=== PATIENT | female | born 1960 | race Caucasian/White ===

== ENCOUNTER 2020-08-04 15:51 | Emergency (ER) | payer MEDICARE, MEDICAID ==
[~2020-08-04] VITALS: Ht 165.1 cm; Wt 82.0 kg
--- NOTE | 2020-08-04 16:11 | NUR ---
Pt arrives via [facility] from home at [place]. Requested to be brought to [facility] stating last time she needed dilaudid and ativan. Pt reporting lower abdominal pain, nauseau, and vomitting since about 0200 lastnight. Pt reporting abd pain 10/10. 100% RA, breathing tachypnic, pt appears anxious. Reports medical hx of COPD, gastric bypass, chronic pain. Hooked up to monitor, EKG done. Placed chucks pad under pt and changed out of clothes into gown as she reprots she "pees a little" everytime she throws up. Pt thowing up very small amount of liquid vomit on arrival to room. Provided emesis bag.
[2020-08-04] MEDS ORDERED: SODIUM CHLORIDE FLUSH 10ML SYR IVF ONE (16:30)
[2020-08-04] MEDS ORDERED: ONDANSETRON 2MG/ML, 2ML IVPush ONE (16:30)
[2020-08-04] MEDS ORDERED: SODIUM CHLORIDE 0.9% 1,000ML IVBOLUS ONE (16:30)
[2020-08-04] MEDS ORDERED: MORPHINE SULFATE 4 MG/ML, 1ML ONE ×2 (16:32→18:27)
[2020-08-04] MEDS ORDERED: ONDANSETRON 2MG/ML, 2ML ONE (16:32)
--- NOTE | 2020-08-04 17:12 | NUR ---
Lab at bedside.
[2020-08-04 17:28] LABS: BASOPHILS % (AUTO) 1 % (0-1); EOSINOPHILS % (AUTO) 0 % (1-7); LYMPHOCYTES % (AUTO) 14 % (22-44); MEAN CORPUSCULAR HEMOGLOBIN 28.6 pg (27.0-34.8); MEAN CORPUSCULAR HGB CONC 33.1 g/dL (32.4-35.8); MEAN PLATELET VOLUME 8.4 fL (7.4-10.4); MONOCYTES % (AUTO) 3 % (2-9); NEUTROPHILS % (AUTO) 82 % (42-75); PLATELET COUNT 161 x10^3/uL (130-400); RED CELL DISTRIBUTION WIDTH 14.5 % (9.6-15.2)
[2020-08-04 17:29] LABS: MD NO
[2020-08-04] MEDS: MORPHINE SULFATE 4 MG/ML, 1ML IVPush PRN ×2 (17:30→18:29)
--- NOTE | 2020-08-04 17:35 | NUR ---
EJ IV started by HEIDI Ortega. NS infusing, medicated per eMAR.
[2020-08-04 17:38] LABS: ANION GAP 10 mmol/L (5-15); CALCIUM 8.9 mg/dL (8.5-10.1); CHLORIDE 110 mmol/L (98-107)
[2020-08-04 17:41] LABS: ALANINE AMINOTRANSFERASE 18 U/L (12-78); ALKALINE PHOSPHATASE 155 U/L (45-117); BILIRUBIN,TOTAL 0.5 mg/dL (0.2-1.0); CREATININE 0.94 mg/dL (0.55-1.02); TOTAL PROTEIN 8.1 g/dL (6.4-8.2)
--- NOTE | 2020-08-04 17:43 | NUR ---
Pt sleeping. Breathing equal, non-labored.
--- NOTE | 2020-08-04 17:50 | NUR ---
Pt reports pain has gone down from 1010 to 4/10.
--- NOTE | 2020-08-04 17:52 | NUR ---
Pt at CT.
[2020-08-04] MEDS ORDERED: OMNIPAQUE 350 MG/ML, 100ML BOTTLE ONE (17:58)
--- NOTE | 2020-08-04 18:06 | NUR ---
Assisted pt to bedside commode. UA collected and tubed to lab.
--- NOTE | 2020-08-04 18:11 | NUR ---
Provided pt socks per pt request.
[2020-08-04 18:23] LABS: MICROSCOPIC NOT IND
--- NOTE | 2020-08-04 19:15 | NUR ---
Dr. Mendiola at bedside.
[2020-08-04 20:04] VITALS: BP 91/61
--- NOTE | 2020-08-04 20:09 | NUR ---
IV removed, catheter intact, hemostasis achieved, dressing applied.
== END 2020-08-04 20:20 | disposition home or self-care (01) ==
LOC: ED 19:59
DX: K76.6 Portal hypertension (principal); K40.90 Unilateral inguinal hernia, without obstruction or gangrene, not specified as recurrent; R16.1 Splenomegaly, not elsewhere classified; R10.30 Lower abdominal pain, unspecified; R10.9 Unspecified abdominal pain; R94.31 Abnormal electrocardiogram [ECG] [EKG]; F41.9 Anxiety disorder, unspecified; R11.2 Nausea with vomiting, unspecified; I10 Essential (primary) hypertension; G89.29 Other chronic pain
CPT/HCPCS: 36415; 74177; 80053; 81003; 83605; 83690; 85025; 87040; 93005; 96361; 96374; 96375; 96376; 99285; J2270; J2405; J7030; Q9967

== ENCOUNTER 2020-08-06 11:46 | Emergency (ER) | payer MEDICARE, MEDICAID ==
[~2020-08-06] VITALS: Ht 165.1 cm; Wt 82.0 kg
--- NOTE | 2020-08-06 11:59 | NUR ---
PT BIB EMS FROM [facility] FOR NV AND ABD PAIN X 3 DAYS. A PAIN WHICH SHE DESCRIBES A "BURNING". PT WAS SEEN IN ER 2 DAYS AGO FOR SAME AND DCd "THEY DIDNT TELL ME ANYTHING". PT RECIEVED 25MG [facility]. PT RESTING IN [facility]. CONNECTED TO MONITORING EQUIPMENT.
[2020-08-06] MEDS ORDERED: MORPHINE SULFATE 4 MG/ML, 1ML ONE ×2 (12:06→12:28)
[2020-08-06] MEDS ORDERED: ONDANSETRON 2MG/ML, 2ML ONE (12:06)
[2020-08-06] MEDS: MORPHINE SULFATE 4 MG/ML, 1ML IVPush PRN ×2 (12:14→12:33)
--- NOTE | 2020-08-06 12:18 | NUR ---
PT MEDICATED PER JUL. REPORTS PAIN IMPROVEMENT
[2020-08-06 12:29] LABS: MICROSCOPIC NOT IND
[2020-08-06] MEDS ORDERED: SODIUM CHLORIDE 0.9% 1,000 ML IV ONE (12:30)
[2020-08-06] MEDS ORDERED: ONDANSETRON 2MG/ML, 2ML IVPush ONE (12:30)
[2020-08-06] MEDS ORDERED: SODIUM CHLORIDE 0.9% 1,000ML IVBOLUS ONE (12:30)
[2020-08-06] MEDS ORDERED: SODIUM CHLORIDE FLUSH 10ML SYR IVF ONE (12:30)
[2020-08-06 12:37] LABS: BASOPHILS % (AUTO) 1 % (0-1); EOSINOPHILS % (AUTO) 1 % (1-7); LYMPHOCYTES % (AUTO) 21 % (22-44); MEAN CORPUSCULAR HEMOGLOBIN 28.8 pg (27.0-34.8); MEAN CORPUSCULAR HGB CONC 33.6 g/dL (32.4-35.8); MEAN PLATELET VOLUME 8.8 fL (7.4-10.4); MONOCYTES % (AUTO) 6 % (2-9); NEUTROPHILS % (AUTO) 72 % (42-75); PLATELET COUNT 146 x10^3/uL (130-400); RED BLOOD COUNT 5.02 x10^6/uL (3.82-5.3); RED CELL DISTRIBUTION WIDTH 14.8 % (9.6-15.2)
[2020-08-06 12:38] LABS: MD NO
[2020-08-06 12:48] LABS: ANION GAP 8 mmol/L (5-15); CALCIUM 8.6 mg/dL (8.5-10.1); CHLORIDE 111 mmol/L (98-107); CREATININE 1.01 mg/dL (0.55-1.02)
[2020-08-06 12:49] LABS: ALANINE AMINOTRANSFERASE 15 U/L (12-78); ALBUMIN 3.7 g/dL (3.4-5.0)
[2020-08-06 12:51] LABS: ALKALINE PHOSPHATASE 139 U/L (45-117); BILIRUBIN,TOTAL 0.6 mg/dL (0.2-1.0); TOTAL PROTEIN 7.8 g/dL (6.4-8.2)
--- NOTE | 2020-08-06 13:00 | NUR ---
PT RESTING IN [facility]. NAD. UP FOR RECHECK
[2020-08-06] MEDS ORDERED: HALOPERIDOL 5 MG/ML ONE (13:13)
[2020-08-06] MEDS ORDERED: HALOPERIDOL 5 MG/ML IV ONE (13:30)
[2020-08-06 13:47] VITALS: BP 165/92
--- NOTE | 2020-08-06 13:47 | NUR ---
PT RESTING IN [facility]. NAD. LAURENCE [facility]AMP[facility]
--- NOTE | 2020-08-06 14:06 | NUR ---
REPORT RECEIVED FROM HEIDI SEBASTIAN
--- NOTE | 2020-08-06 15:06 | NUR ---
DISCHARGE INSTRUCTIONS REVIEWED WITH PT. ALL QUESTIONS ANSWERED AT THIS TIME.
== END 2020-08-06 15:08 | disposition home or self-care (01) ==
LOC: ED 13:20
DX: R11.2 Nausea with vomiting, unspecified (principal); R10.10 Upper abdominal pain, unspecified; I10 Essential (primary) hypertension
CPT/HCPCS: 36415; 80053; 81003; 83690; 85025; 96361; 96374; 96375; 99284; J1630; J2270; J2405; J7030

== ENCOUNTER 2020-08-26 15:17 | Emergency (ER) | payer MEDICARE, MEDICAID ==
[~2020-08-26] VITALS: Ht 165.1 cm; Wt 81.9 kg
[2020-08-26 15:20] VITALS: BP 136/88
--- NOTE | 2020-08-26 15:49 | NUR ---
local sales associate note: Pt in [place] currently, will go to 36 when study is complete.
--- NOTE | 2020-08-26 16:00 | NUR ---
Pt sitting in chair watching TV, pt encouraged to change into gown. Pt stated 'I wont be here long'.
--- NOTE | 2020-08-26 16:16 | NUR ---
Dr. Palomo at bedside to evaluate pt.
--- NOTE | 2020-08-26 16:56 | NUR ---
pt ambulatory w/ steady gait to restroom
[2020-08-26 16:58] LABS: BASOPHILS % (AUTO) 1 % (0-1); EOSINOPHILS % (AUTO) 2 % (1-7); LYMPHOCYTES % (AUTO) 31 % (22-44); MEAN CORPUSCULAR HGB CONC 33.5 g/dL (32.4-35.8); MEAN PLATELET VOLUME 8.1 fL (7.4-10.4); MONOCYTES % (AUTO) 7 % (2-9); NEUTROPHILS % (AUTO) 60 % (42-75); PLATELET COUNT 173 x10^3/uL (130-400); RED BLOOD COUNT 5.03 x10^6/uL (3.82-5.3); RED CELL DISTRIBUTION WIDTH 15.1 % (9.6-15.2)
[2020-08-26 17:00] LABS: MD NO
[2020-08-26 17:10] LABS: ALANINE AMINOTRANSFERASE 19 U/L (12-78); ALBUMIN 3.9 g/dL (3.4-5.0); ANION GAP 5 mmol/L (5-15); CALCIUM 8.7 mg/dL (8.5-10.1); CHLORIDE 110 mmol/L (98-107)
[2020-08-26 17:15] LABS: ALKALINE PHOSPHATASE 139 U/L (45-117); BILIRUBIN,TOTAL 0.3 mg/dL (0.2-1.0); TOTAL PROTEIN 8.1 g/dL (6.4-8.2); TROPONIN I < 0.015 ng/mL (0.000-0.045)
[2020-08-26 17:19] LABS: MICROSCOPIC NOT IND
== END 2020-08-26 17:34 | disposition home or self-care (01) ==
LOC: ED 16:23
DX: R60.0 Localized edema (principal); R07.9 Chest pain, unspecified; I10 Essential (primary) hypertension; Z87.891 Personal history of nicotine dependence; Z88.5 Allergy status to narcotic agent
CPT/HCPCS: 36415; 71045; 80053; 81003; 83880; 84484; 85025; 99285

== ENCOUNTER 2020-09-02 12:55 | Emergency (ER) | payer MEDICARE, MEDICAID ==
[~2020-09-02] VITALS: Ht 165.1 cm; Wt 77.0 kg
--- NOTE | 2020-09-02 13:04 | NUR ---
biba. pt c/o n/v/d with bilateral upper abd pain since 6am today. pt took zofran at 11:30am, not working per pt. hx of gastric bypass in 2013. pt's aox4. resps even and unlabored. denies any urinary symptoms. bp/spo2 monitors in place. call light within reach.
[2020-09-02] MEDS ORDERED: HALOPERIDOL 5 MG/ML IV ONE ×2 (13:30→15:30)
[2020-09-02] MEDS ORDERED: SODIUM CHLORIDE 0.9% 1,000ML IVBOLUS ONE (13:30)
[2020-09-02] MEDS ORDERED: METOCLOPRAMIDE 5 MG/ML, 2ML IVPush ONE (13:30)
[2020-09-02] MEDS ORDERED: SODIUM CHLORIDE FLUSH 10ML SYR IVF ONE (13:30)
--- NOTE | 2020-09-02 13:31 | NUR ---
pt to imaging at this time.
[2020-09-02] MEDS ORDERED: METOCLOPRAMIDE 5 MG/ML, 2ML ONE (13:34)
[2020-09-02] MEDS ORDERED: HALOPERIDOL 5 MG/ML ONE ×2 (13:34→15:31)
--- NOTE | 2020-09-02 13:41 | NUR ---
PT AMB TO BR WITH STEADY GAIT. URINE CUP GIVEN.
--- NOTE | 2020-09-02 13:49 | NUR ---
PT BACK TO ROOM WITH STEADY GAIT. PT PROVIDED URINE SAMPLE.
--- NOTE | 2020-09-02 14:03 | NUR ---
PIV EST ON L FOREARM. PT MEDICATED PER EMAR. PT TOLERATED WELL. NS INFUSING AT THIS TIME.
--- NOTE | 2020-09-02 14:08 | NUR ---
ua sent at this time.
--- NOTE | 2020-09-02 14:37 | NUR ---
PT SLEEPING IN [facility]. VSS. RESPS EVEN AND UNLABORED.
[2020-09-02 14:38] LABS: ALANINE AMINOTRANSFERASE 18 U/L (12-78); ALBUMIN 3.9 g/dL (3.4-5.0); ANION GAP 7 mmol/L (5-15); CALCIUM 8.9 mg/dL (8.5-10.1); CHLORIDE 112 mmol/L (98-107); CREATININE 0.81 mg/dL (0.55-1.02)
--- NOTE | 2020-09-02 14:38 | NUR ---
PT'S DAUGHTER'S NUMBER AMANDA [phone]
[2020-09-02 14:40] LABS: ALKALINE PHOSPHATASE 139 U/L (45-117); BILIRUBIN,TOTAL 0.7 mg/dL (0.2-1.0); TOTAL PROTEIN 7.8 g/dL (6.4-8.2)
[2020-09-02 14:52] LABS: BASOPHILS % (AUTO) 0 % (0-1); EOSINOPHILS % (AUTO) 0 % (1-7); LYMPHOCYTES % (AUTO) 12 % (22-44); MEAN CORPUSCULAR HEMOGLOBIN 28.5 pg (27.0-34.8); MEAN CORPUSCULAR HGB CONC 33.4 g/dL (32.4-35.8); MEAN PLATELET VOLUME 8.8 fL (7.4-10.4); MONOCYTES % (AUTO) 3 % (2-9); NEUTROPHILS % (AUTO) 84 % (42-75); PLATELET COUNT 183 x10^3/uL (130-400); RED BLOOD COUNT 4.96 x10^6/uL (3.82-5.3); RED CELL DISTRIBUTION WIDTH 14.8 % (9.6-15.2)
[2020-09-02 14:55] LABS: MD NO
[2020-09-02 14:57] LABS: MICROSCOPIC NOT IND
--- NOTE | 2020-09-02 15:04 | NUR ---
break RN note: pt sleeping on gurney, resps even and unlabored, nsr on hoop maker with no ectopy. dispo pending labwork.
--- NOTE | 2020-09-02 15:14 | NUR ---
pt requested pain med. edmd notified.
--- NOTE | 2020-09-02 15:35 | NUR ---
PT MEDICATED PER EMAR. PT TOLERATED WELL.
[2020-09-02 16:09] VITALS: BP 137/80
--- NOTE | 2020-09-02 16:14 | NUR ---
pt requesting zofran at this time. edmd notified.
[2020-09-02] MEDS ORDERED: ONDANSETRON ODT 4 MG ONE (16:15)
--- NOTE | 2020-09-02 16:17 | NUR ---
PT MEDICATED PER EMAR. PT TOLERATED WELL.
[2020-09-02] MEDS ORDERED: ONDANSETRON ODT 4 MG PO ONE (16:30)
--- NOTE | 2020-09-02 16:34 | NUR ---
Patient given discharge instructions and they have confirmed that they understand the instructions. Patient ambulatory with steady gait.
== END 2020-09-02 16:35 | disposition home or self-care (01) ==
LOC: ED 16:15
DX: G89.29 Other chronic pain (principal); R10.13 Epigastric pain; R10.33 Periumbilical pain; R11.2 Nausea with vomiting, unspecified; I10 Essential (primary) hypertension; R19.7 Diarrhea, unspecified; R00.1 Bradycardia, unspecified; Z87.891 Personal history of nicotine dependence
CPT/HCPCS: 36415; 74021; 80053; 81003; 83690; 85025; 93005; 96361; 96374; 96375; 96376; 99285; J1630; J2765; J7030; Q0162

== ENCOUNTER 2020-09-04 20:26 | Inpatient (IN) | payer MEDICARE, MEDICAID ==
[~2020-09-04] VITALS: Ht 165.1 cm; Wt 84.0 kg
--- NOTE | 2020-09-04 20:57 | NUR ---
PT STATES COMING IN TWO DAYS AGO FOR SAME COMPLAINT OF N/V AND EPIGASTRIC PAIN. VOMIT DESCRIBED LOOKING LIKE BILE AND OLD FOOD SHE ATE. DENIES CP, SOB, AND DIARRHEA. REPORTS HAD SLIGHT RELEIF OF PAIN AFTER FIRST VISIT BUT SAYS IT CAME BACK. SAYS PAIN FEELS LIKE FIRE, BURNING, AND TWISTING.
[2020-09-04] MEDS ORDERED: ONDANSETRON 2MG/ML, 2ML IVPush ONE (21:30)
[2020-09-04] MEDS ORDERED: MORPHINE SULFATE 4 MG/ML, 1ML IVPush PRN ×2 (21:30→23:30)
[2020-09-04] MEDS ORDERED: SODIUM CHLORIDE 0.9% 1,000ML IVBOLUS ONE (21:30)
[2020-09-04 21:43] LABS: BASOPHILS % (AUTO) 0 % (0-1); EOSINOPHILS % (AUTO) 0 % (1-7); LYMPHOCYTES % (AUTO) 13 % (22-44); MEAN CORPUSCULAR HEMOGLOBIN 28.4 pg (27.0-34.8); MEAN CORPUSCULAR HGB CONC 33.2 g/dL (32.4-35.8); MEAN PLATELET VOLUME 8.5 fL (7.4-10.4); MONOCYTES % (AUTO) 4 % (2-9); NEUTROPHILS % (AUTO) 82 % (42-75); PLATELET COUNT 178 x10^3/uL (130-400); RED BLOOD COUNT 5.07 x10^6/uL (3.82-5.3); RED CELL DISTRIBUTION WIDTH 14.7 % (9.6-15.2)
[2020-09-04 21:46] LABS: MD NO
[2020-09-04] MEDS ORDERED: MORPHINE SULFATE 4 MG/ML, 1ML ONE ×2 (21:48→23:44)
[2020-09-04] MEDS ORDERED: ONDANSETRON 2MG/ML, 2ML ONE (21:48)
[2020-09-04 21:55] LABS: ALANINE AMINOTRANSFERASE 20 U/L (12-78); ALBUMIN 3.9 g/dL (3.4-5.0); ANION GAP 7 mmol/L (5-15); CALCIUM 8.7 mg/dL (8.5-10.1); CHLORIDE 111 mmol/L (98-107); CREATININE 0.91 mg/dL (0.55-1.02)
[2020-09-04 21:59] LABS: ALKALINE PHOSPHATASE 136 U/L (45-117); BILIRUBIN,TOTAL 0.5 mg/dL (0.2-1.0); TOTAL PROTEIN 7.9 g/dL (6.4-8.2)
--- NOTE | 2020-09-04 22:04 | NUR ---
PT UP TO BATHROOM FOR UA AND BACK IN BED RESTING.
--- NOTE | 2020-09-04 22:29 | NUR ---
PY OFF UNIT IN IMAGING.
[2020-09-04] MEDS ORDERED: OMNIPAQUE 350 MG/ML, 100ML BOTTLE ONE (22:42)
[2020-09-04 22:47] LABS: MICROSCOPIC AUTO
[2020-09-04] MEDS ORDERED: ASPIRIN 81 MG TABLET CHEW PO ONE (23:00)
[2020-09-04] MEDS ORDERED: ASPIRIN 81 MG TABLET CHEW ONE (23:12)
[2020-09-04] MEDS ORDERED: HEPARIN 25,000 UNITS/250ML PMX 250 ML IV PRN (23:30)
[2020-09-04] MEDS ORDERED: ONDANSETRON 2MG/ML, 2ML IVPush PRN (23:30)
[2020-09-04] MEDS ORDERED: HEPARIN 5,000 UNITS/ML, 1ML IV PRN (23:30)
[2020-09-04] MEDS ORDERED: HEPARIN 5,000 UNITS/ML, 1ML IV ONE (23:30)
[2020-09-04] MEDS ORDERED: HEPARIN 25,000 UNITS/250ML PMX 250 ML ONE (23:37)
[2020-09-04] MEDS ORDERED: HEPARIN 5,000 UNITS/ML, 1ML ONE (23:37)
--- NOTE | 2020-09-04 23:37 | NUR ---
HELPED PT TO COMMODE. PT ASKING FOR PAIN/NAUSEA MEDICINE.
--- NOTE | 2020-09-04 23:48 | NUR ---
PATIENT AND FAMILY UPDATED ON PLAN OF CARE. PATIENT UP TO RESTROOM WITH ASSISTANCE TO BEDSIDE COMMODE. PT REQUESTED PAIN MEDICATION, MEDICATION GIVEN PER JUL. PT STATED 1010 PAIN, VSS. HEPARIN DRIP STARTED, THERAPY INITATION EDUCATION PROVIDED. PT VERBALIZED UNDERSTANDING.
[2020-09-05] MEDS ORDERED: DOCUSATE 100 MG CAPSULE PO PRN
[2020-09-05] MEDS ORDERED: NITROGLYCERIN 0.4 MG BOTTLE (25 TABS) SL PRN
[2020-09-05] MEDS ORDERED: ENALAPRILAT 1.25 MG/ML, 2ML IVPush PRN
[2020-09-05] MEDS ORDERED: OXYC-380 PO (00:01)
[2020-09-05] MEDS ORDERED: SERT50TA PO (00:01)
--- NOTE | 2020-09-05 00:14 | NUR ---
Note nadege in ED - 09/05/20 at 0015 by [id number] PATIENT RESTING IN BED, NO NOTED NEEDS AT THIS TIME, VSS. CALL LIGHT WITHIN REACH, BED IN LOWEST LOCKED POSITION. WILL CONTINUE TO MONITOR.
--- NOTE | 2020-09-05 00:15 | NUR ---
PATIENT RESTING IN BED, NO NOTED NEEDS AT THIS TIME, VSS. CALL LIGHT WITHIN REACH, BED IN LOWEST LOCKED POSITION. WILL CONTINUE TO MONITOR.
[2020-09-05 00:26] VITALS: BP 104/70
[2020-09-05] MEDS ORDERED: LOVASTATIN 40 MG TABLET PO SCH (01:30)
[2020-09-05] MEDS ORDERED: POTASSIUM CHLORIDE 20 MEQ TAB.ER.PRT PO ONE (01:30)
[2020-09-05 03:25] LABS: BASOPHILS % (AUTO) 0 % (0-1); EOSINOPHILS % (AUTO) 0 % (1-7); LYMPHOCYTES % (AUTO) 17 % (22-44); MEAN CORPUSCULAR HEMOGLOBIN 28.4 pg (27.0-34.8); MEAN CORPUSCULAR HGB CONC 33.2 g/dL (32.4-35.8); MEAN PLATELET VOLUME 8.4 fL (7.4-10.4); MONOCYTES % (AUTO) 5 % (2-9); NEUTROPHILS % (AUTO) 77 % (42-75); PLATELET COUNT 163 x10^3/uL (130-400); RED BLOOD COUNT 4.71 x10^6/uL (3.82-5.3); RED CELL DISTRIBUTION WIDTH 14.6 % (9.6-15.2)
[2020-09-05 03:26] LABS: MD NO
[2020-09-05 03:37] LABS: ANION GAP 5 mmol/L (5-15); CHLORIDE 112 mmol/L (98-107); CREATININE 0.81 mg/dL (0.55-1.02)
[2020-09-05 03:59] VITALS: BP 104/69
[2020-09-05 07:15] VITALS: BP 124/80
[2020-09-05] MEDS: OXYcodone/APAP 10/325MG TABLET PO SCH ×3 (10:00→20:03)
[2020-09-05] MEDS: morphine SULFATE 10 MG/ML, 1ML IVPush PRN (11:19)
[2020-09-05] MEDS: SODIUM CHLORIDE 0.9% 1,000 ML IV SCH ×2 (12:01→19:39)
[2020-09-05 12:53] VITALS: BP 148/86
[2020-09-05] MEDS ORDERED: VERAPAMIL 2.5 MG/ML, 2ML ONE (16:34)
[2020-09-05] MEDS ORDERED: FENTANYL PF 100 MCG/2ML ONE (16:34)
[2020-09-05] MEDS ORDERED: MIDAZOLAM 1 MG/ML, 5ML ONE (16:34)
[2020-09-05] MEDS ORDERED: TICAGRELOR 90 MG TABLET ONE (16:34)
[2020-09-05] MEDS ORDERED: BIVALIRUDIN 250 MG ONE (16:35)
[2020-09-05] MEDS ORDERED: LIDOCAINE-MPF 1%, 5ML ONE (16:35)
[2020-09-05] MEDS ORDERED: HEPARIN 1,000 UNITS/ML, 10ML ONE (16:35)
[2020-09-05] MEDS ORDERED: SODIUM CHLORIDE 0.9% 1,000 ML IV SCH (17:30)
[2020-09-05] MEDS ORDERED: ONDANSETRON 2MG/ML, 2ML IVPush ONE (20:00)
[2020-09-05 20:02] VITALS: BP 143/86
[2020-09-05] MEDS: MELATONIN 5 MG TABLET PO PRN (20:03)
[2020-09-05] MEDS: ATORVASTATIN 40 MG TABLET PO SCH (20:03)
[2020-09-06] VITALS (9 sets, daily range): BP systolic 118–193; BP diastolic 74–105
[2020-09-06] MEDS: SODIUM CHLORIDE 0.9% 1,000 ML IV SCH ×2 (03:40→12:06)
[2020-09-06] MEDS: ASPIRIN 81 MG TABLET EC PO SCH (05:12)
[2020-09-06] MEDS: ACETAMINOPHEN 325 MG TABLET PO PRN (05:13)
[2020-09-06 05:19] LABS: MEAN CORPUSCULAR HEMOGLOBIN 28.3 pg (27.0-34.8); MEAN CORPUSCULAR HGB CONC 32.6 g/dL (32.4-35.8); MEAN PLATELET VOLUME 9.3 fL (7.4-10.4); PLATELET COUNT 136 x10^3/uL (130-400); RED BLOOD COUNT 4.92 x10^6/uL (3.82-5.3); RED CELL DISTRIBUTION WIDTH 14.8 % (9.6-15.2)
[2020-09-06 05:22] LABS: ALANINE AMINOTRANSFERASE 17 U/L (12-78); ALBUMIN 3.5 g/dL (3.4-5.0); ANION GAP 3 mmol/L (5-15); CALCIUM 8.4 mg/dL (8.5-10.1); CHLORIDE 113 mmol/L (98-107)
[2020-09-06 05:24] LABS: CREATININE 0.82 mg/dL (0.55-1.02)
[2020-09-06 05:25] LABS: ALKALINE PHOSPHATASE 115 U/L (45-117); BILIRUBIN,TOTAL 0.5 mg/dL (0.2-1.0); CHOL/HDL RATIO 1.8; CHOLESTEROL, TOTAL 135 mg/dL (140-239); HDL CHOL % 56 % (28-40); HDL CHOLESTEROL (DIRECT) 75 mg/dL (40-60); LDL CHOLESTEROL,CALCULATED 43 mg/dL (54-169); LDL/HDL RATIO 0.6 (0.5-3.0); TOTAL PROTEIN 7.2 g/dL (6.4-8.2); TRIGLYCERIDES 87 mg/dL (50-200); VLDL CHOLESTEROL 17 mg/dL (0-25)
[2020-09-06 05:54] LABS: MD YES
[2020-09-06 05:59] LABS: EOS#(MANUAL) 0.31 x10^3/uL (0.0-0.4); EOS% (MANUAL) 6 % (1-7); LYMPH#(MANUAL) 1.61 x10^3/uL (1-3.4); LYMPHS% (MANUAL) 31 % (22-44); MONOS#(MANUAL) 0.16 x10^3/uL (0.3-2.7); MONOS% (MANUAL) 3 % (2-9); SEG#(MANUAL) 3.12 x10^3/uL (1.8-6.8); SEGS% (MANUAL) 60 % (42-75)
[2020-09-06 06:00] LABS: <PLATELET ESTIMATE> ADEQUATE; <PLT MORPHOLOGY> NORMAL PLT MORPH; <RBC MORPHOLOGY> NORMAL
[2020-09-06 06:15] LABS: AMPHETAMINE SCREEN, URINE Negative (Negative); BARBITURATE SCREEN, URINE Negative (Negative); BENZODIAZEPINE SCREEN, URINE Positive (Negative); CANNABINOID SCREEN, URINE Positive (Negative); COCAINE SCREEN, URINE Negative (Negative); METHADONE SCREEN, URINE Negative (Negative); OPIATE SCREEN, URINE Positive (Negative)
[2020-09-06] MEDS: OMEPRAZOLE 20 MG CAPSULE.DR PO SCH ×2 (08:30→18:02)
[2020-09-06] MEDS: ONDANSETRON 2MG/ML, 2ML IVPush PRN ×2 (09:25→22:32)
[2020-09-06] MEDS: SERTRALINE 50MG TABLET PO SCH (09:26)
[2020-09-06] MEDS: OXYcodone/APAP 10/325MG TABLET PO SCH ×3 (09:33→20:13)
[2020-09-06] MEDS ORDERED: HALOPERIDOL 5 MG/ML IV ONE (10:00)
[2020-09-06] MEDS: morphine SULFATE 10 MG/ML, 1ML IVPush PRN (10:18)
[2020-09-06] MEDS: SUCRALFATE 1 GM/10 ML UDC PO SCH ×3 (11:00→20:12)
[2020-09-06] MEDS: CLOPIDOGREL 75 MG TABLET PO SCH (12:24)
[2020-09-06] MEDS: ENOXAPARIN 40 MG/0.4 ML SQ SCH (15:30)
[2020-09-06] MEDS: MELATONIN 5 MG TABLET PO PRN (20:13)
[2020-09-06] MEDS: ATORVASTATIN 40 MG TABLET PO SCH (20:13)
[2020-09-07 00:08] VITALS: BP 107/67
[2020-09-07] MEDS: ACETAMINOPHEN 325 MG TABLET PO PRN (04:32)
[2020-09-07] MEDS: OMEPRAZOLE 20 MG CAPSULE.DR PO SCH ×2 (05:01→16:03)
[2020-09-07] MEDS: ASPIRIN 81 MG TABLET EC PO SCH (05:01)
[2020-09-07] MEDS: SUCRALFATE 1 GM/10 ML UDC PO SCH ×4 (06:31→20:11)
[2020-09-07 07:18] VITALS: BP 130/78
[2020-09-07] MEDS: CLOPIDOGREL 75 MG TABLET PO SCH (08:52)
[2020-09-07] MEDS: SERTRALINE 50MG TABLET PO SCH (08:52)
[2020-09-07] MEDS: OXYcodone/APAP 10/325MG TABLET PO SCH ×3 (08:54→20:13)
[2020-09-07 13:49] VITALS: BP 147/84
[2020-09-07 14:00] VITALS: BP 160/96
[2020-09-07] MEDS: ENOXAPARIN 40 MG/0.4 ML SQ SCH (16:00)
[2020-09-07 18:49] VITALS: BP 153/86
[2020-09-07] MEDS: ATORVASTATIN 40 MG TABLET PO SCH (20:11)
[2020-09-07] MEDS: MELATONIN 5 MG TABLET PO PRN (20:11)
[2020-09-07] MEDS: ONDANSETRON 2MG/ML, 2ML IVPush PRN (20:13)
[2020-09-08 00:30] VITALS: BP 133/81
[2020-09-08] MEDS: OMEPRAZOLE 20 MG CAPSULE.DR PO SCH (05:17)
[2020-09-08] MEDS: ASPIRIN 81 MG TABLET EC PO SCH (05:17)
[2020-09-08] MEDS: SUCRALFATE 1 GM/10 ML UDC PO SCH ×2 (07:00→12:45)
[2020-09-08 07:12] VITALS: BP 148/89
[2020-09-08] MEDS ORDERED: CHLORHEXIDINE 15 ML UDC ONE ×2 (07:15→07:38)
[2020-09-08] MEDS ORDERED: MEPERIDINE/PF 25MG/0.5ML IVPush PRN (07:30)
[2020-09-08] MEDS ORDERED: PROMETHAZINE 25 MG/ML, 1ML IVPush PRN (07:30)
[2020-09-08] MEDS ORDERED: OXYcodone 5 MG/5 ML ORAL.SOL UDC PO PRN (07:30)
[2020-09-08] MEDS ORDERED: ACETAMINOPHEN 325 MG TABLET PO PRN (07:30)
[2020-09-08] MEDS ORDERED: MIDAZOLAM 1 MG/ML, 2ML ONE (07:30)
[2020-09-08] MEDS ORDERED: LABETALOL 5MG/ML, 20ML IV PRN (07:30)
[2020-09-08] MEDS ORDERED: FENTANYL PF 100 MCG/2ML IV PRN (07:30)
[2020-09-08] MEDS ORDERED: ONDANSETRON 2MG/ML, 2ML IVPush PRN (07:30)
[2020-09-08] MEDS ORDERED: hydrALAzine 20 MG/ML, 1ML IV PRN (07:30)
[2020-09-08] MEDS ORDERED: HYDROmorphone 1 MG/ML, 1ML INJ IVPush PRN (07:30)
[2020-09-08] MEDS ORDERED: FENTANYL PF 100 MCG/2ML ONE (07:30)
[2020-09-08] MEDS ORDERED: PROPOFOL 10 MG/ML, 20ML ONE (07:31)
[2020-09-08] MEDS: ONDANSETRON 2MG/ML, 2ML IVPush PRN (10:40)
[2020-09-08] MEDS: SERTRALINE 50MG TABLET PO SCH (10:42)
[2020-09-08] MEDS: OXYcodone/APAP 10/325MG TABLET PO SCH (10:43)
[2020-09-08] MEDS ORDERED: ASPI81TA45 PO (11:00)
[2020-09-08] MEDS ORDERED: ONDA4TAB7 PO (11:00)
[2020-09-08] MEDS ORDERED: PROM25TA10 PO (11:00)
[2020-09-08] MEDS ORDERED: CLOP75TA PO (11:00)
[2020-09-08] MEDS ORDERED: OMEP-110 PO (11:00)
[2020-09-08] MEDS ORDERED: SUCR1ORA5 PO (11:00)
[2020-09-08] MEDS ORDERED: PROM25SU35 PR (11:00)
[2020-09-08] MEDS ORDERED: ATOR40TA78 PO (11:00)
[2020-09-08] MEDS ORDERED: FLU VACC QS2020-21(6MOS UP)/PF 60MCG/0.5 ML SYR IM-VACC ONE (12:30)
[2020-09-08] MEDS: CLOPIDOGREL 75 MG TABLET PO SCH (12:45)
[2020-09-08 13:16] VITALS: BP 122/78
== END 2020-09-08 14:05 | disposition home or self-care (01) | DRG 281 ==
LOC: ED 20:47 → EDIP 23:18 → 5SO 09-05 00:34 → 3N 09-07 13:39 → DCLOUNGE 09-08 14:05
PROVIDERS: ADMIT Internal Medicine; ATTEND Family Medicine
PROC: 4A023N7 Measurement of Cardiac Sampling and Pressure, Left Heart, Percutaneous Approach (ICD-10-PCS; 2020-09-05)
PROC: B2111ZZ Fluoroscopy of Multiple Coronary Arteries using Low Osmolar Contrast (ICD-10-PCS; 2020-09-05)
PROC: B2151ZZ Fluoroscopy of Left Heart using Low Osmolar Contrast (ICD-10-PCS; 2020-09-05)
PROC: 0DB68ZX Excision of Stomach, Via Natural or Artificial Opening Endoscopic, Diagnostic (ICD-10-PCS; principal; 2020-09-08 08:00)
DX: I21.4 Non-ST elevation (NSTEMI) myocardial infarction (principal); I51.81 Takotsubo syndrome; K29.70 Gastritis, unspecified, without bleeding; G89.29 Other chronic pain; E87.6 Hypokalemia; Z20.822 Contact with and (suspected) exposure to COVID-19; Z88.6 Allergy status to analgesic agent; E66.9 Obesity, unspecified; E78.5 Hyperlipidemia, unspecified; F12.10 Cannabis abuse, uncomplicated; F41.1 Generalized anxiety disorder; I10 Essential (primary) hypertension; K21.9 Gastro-esophageal reflux disease without esophagitis; K22.8 Other specified diseases of esophagus; K44.9 Diaphragmatic hernia without obstruction or gangrene; Z79.01 Long term (current) use of anticoagulants; Z80.1 Family history of malignant neoplasm of trachea, bronchus and lung; Z83.3 Family history of diabetes mellitus; Z85.118 Personal history of other malignant neoplasm of bronchus and lung; Z87.891 Personal history of nicotine dependence; Z98.84 Bariatric surgery status; Z68.30 Body mass index [BMI] 30.0-30.9, adult
CPT/HCPCS: 36415; 74177; 74240; 80048; 80053; 80061; 80307; 81001; 83036; 83690; 83735; 84443; 84484; 85025; 85520; 87635; 88305; 88342; 90686; 93005; 93306; 93458; 96361; 96374; 96375; 99156; 99285; C1769; C1894; G0378; J0583; J1644; J1650; J2250; J2405; J2704; J3010; Q9967; J1630; J2270; J7030